=== PATIENT | male | born 1960 ===

== ENCOUNTER 2019-01-10 10:50 | Outpatient (CLI) | payer MEDICAID | END 2019-01-10 10:51 | disposition home or self-care (01) | LOC: C.RADH 10:50 | DX: R63.4 Abnormal weight loss (principal) ==

== ENCOUNTER 2019-03-11 20:25 | Emergency (ER) | payer MEDICAID | END 2019-03-12 00:18 | disposition home or self-care (01) | LOC: C.ER 03-12 00:18 ==